=== PATIENT | female | born 1965 | race African-American/Black ===

== ENCOUNTER → 2017-04-01 | Outpatient (CLI) | payer BC ==
--- NOTE | 2017-04-03 08:23 | MRI ---
EXAM DESCRIPTION: MRI left knee CLINICAL HISTORY: Left knee pain and swelling. Inability to bend the knee COMPARISON: None. TECHNIQUE: Multiplanar, multisequence MR images of the left knee FINDINGS: ACL, PCL, MCL and fibular collateral ligaments are intact. Thickened proximal MCL compatible with a prior remote sprain Intrameniscal signal within the medial meniscus. No focal meniscal tear. Minimal fraying of the free edge. Medial femorotibial chondrosis with moderate chondral thinning over the tibia. Moderate to high-grade chondral thinning over the weightbearing femoral condyle over about 1.3 x 1.8 cm region, grade 3 and grade 4 chondrosis. There is minimal marrow edema along the posterior weightbearing condyle compatible with overlying full-thickness fissuring No lateral meniscal tear or lateral femorotibial chondrosis Partial-thickness defect at the apex of the patellar cartilage centrally sagittal image 12, axial image 26 and 27. The remainder of the patellar cartilage is normal. Small region of grade 3/4 chondrosis lower medial femoral trochlea over about 8 mm Biceps femoris, popliteus and iliotibial band tendons are intact. Patellar and quadriceps tendons and tendons of the posterior medial knee are intact Moderate joint effusion with synovitis. Subsynovial fatty proliferation and synovitis in the suprapatellar bursa. Complex Alvarez cyst with synovitis. Septations and synovial thickening throughout the Alvarez's cyst. Dominant inferior extension and synovitis, partially decompressed with surrounding soft tissue edema. The Alvarez's cyst spans about 10 cm craniocaudal with greatest anteroposterior dimension about 4.7 cm in the greatest transverse dimension about 1.6 cm. There is no intra-articular chondral or osseous loose body IMPRESSION: Chondrosis weightbearing medial femoral condyle and small regions patellofemoral No meniscal tear Joint effusion with synovitis most significantly affecting a Alvarez cyst Electronically signed by: Alfonso Mendieta MD 04/03/2017 8:22 AM [facility]
== END | disposition home or self-care (01) ==
LOC: MRI 12:58
PROVIDERS: ATTEND Orthopaedic Surgery
DX: M17.12 Unilateral primary osteoarthritis, left knee (principal); M25.462 Effusion, left knee